=== PATIENT | female | born 1960 | race Caucasian/White ===

== ENCOUNTER → 2016-12-17 | Outpatient (CLI) | payer BC ==
--- NOTE | 2016-12-17 19:01 | DX ---
PA and Lateral Chest History: Cough in a 56-year-old female. Findings: The heart and mediastinal contours are normal. Pulmonary vascularity is normal. There is c entral peribronchial thickening. There is more focal opacity in the right infrahilar region which cou ld reflect atelectasis or possibly pneumonia. Clinical correlation is recommended. No pleural effusio ns are seen. Impression: Findings most consistent with airways disease are noted. More focal right infrahilar opa city is seen, atelectasis versus pneumonia with clinical correlation recommended.
== END ==
LOC: FIMAGING 17:20
PROVIDERS: ATTEND Nurse Practitioner Family
DX: J44.9 Chronic obstructive pulmonary disease, unspecified (principal)

== ENCOUNTER 2016-12-21 13:07 | Emergency (ER) | payer BC ==
[2016-12-21 13:09] VITALS: BP 121/77; RESP 16; TEMP 98.6
--- NOTE | 2016-12-21 13:33 | EDPHY ---
H & P Stated Complaint: sob - Personal History Current Tetanus/Diphtheria Vaccine: Yes - Medical/Surgical History Hx Asthma: No Hx Chronic Respiratory Disease: No Hx Diabetes: No Hx Cardiac Disease: No Hx Renal Disease: No Hx Cirrhosis: No Hx Alcoholism: No Hx HIV/AIDS: No Hx Splenectomy or Spleen Trauma: No Other PMH: pna - Social History Smoking Status: Never smoked Time Seen by Provider: 12/21/16 13:20 HPI/ROS: Chief complaint: Shortness of breath History of present illness: This is a 56-year-old female who presents to the emergency department reporting shortness of breath. Patient states she was diagnosed with pneumonia earlier this last week. She is currently on azithromycin, she is taking it as prescribed and took her 4th day dose today. She states she has been doing well. However today she started to cough in her car, she reports having a prolonged coughing episode and then feeling like phlegm got stuck in her chest and she felt like she was having trouble breathing. The symptoms have subsequently resolved and at this time she states she feels well with no complaints. No current trouble breathing, no fevers, no new signs or symptoms. (Kahlil Navas) - Physical Exam Exam: General Appearance: Alert and no distress. Eyes: Pupils equal and round no injection. ENT: Tympanic membranes, external auditory canals, external ears and surrounding soft tissue including over the mastoids are unremarkable. Nasopharynx is not injected. There is no rhinorrhea. Oropharynx is not injected. There is no edema. There is no exudate. There is no asymmetry. The uvula is midline. No elevation of the tongue. There is no hoarseness, no drooling, no trismus, no stridor. Respiratory: Chest is non tender, lungs are clear to auscultation. Cardiac: regular rate and rhythm Musculoskeletal: Neck is supple and non tender. Extremities have full range of motion and are non tender. Skin: No rashes or lesions. Neurologic: Alert and oriented x4. Strength and sensation intact and symmetrical. No meningismus. (Kahlil Navas) Constitutional: Initial Vital Signs Temperature (C) 37.0 C 12/21/16 13:08 Heart Rate 98 12/21/16 13:08 Respiratory Rate 16 12/21/16 13:08 Blood Pressure 121/77 H 12/21/16 13:08 O2 Sat (%) 97 12/21/16 13:08 O2 Delivery Mode Room Air Allergies/Adverse Reactions: prochlorperazine edisylate [From Compazine] Allergy (Unknown, Verified 07/05/13 16:33) prochlorperazine maleate [From Compazine] Allergy (Unknown, Verified 07/05/13 16 :33) Home Medications: Medication Instructions Recorded Restasis 07/05/13 Albuterol [Proventil Inhaler HFA 1 - 2 puffs IH Q4H #1 mdi 12/21/16 (*)] Guaifenesin/Codeine Phosphate 10 ml PO Q6 #120 liquid 12/21/16 [Codeine-Guaifen 10-100 mg/5 ml] Medical Decision Making ED Course/Re-evaluation: Patient seen under the supervision of my secondary supervising physician Dr. Brandee Fitch. Patient presents to the emergency department for evaluation and treatment after having an episode of coughing that resulted in some trouble breathing earlier today. She is currently being treated for pneumonia with azithromycin. She is compliant with medications. On evaluation she is nontoxic. She is afebrile and vital signs are stable. Symptoms have resolved. It was just one episode reported. I have offered a chest x-ray to re- evaluate her pneumonia but she has declined. Patient will be discharged home. She is asked to continue her antibiotics. Home care is discussed including the use of cough medication and an inhaler. She is asked to follow up with her primary care doctor for recheck. Return precautions are given. Patient voiced understanding and agreement with plan. (Kahlil Navas) Differential Diagnosis: Included but not limited to worsening pneumonia, reactive airway disease, empyema (Kahlil Navas) Other Provider: The patient wasevaluatedand managed by themidlevel provider. My co-signature indicates that [facility] reviewed this chart and I agree with the findings and plan of care asdocumented. I am the secondary supervisingphysician. (Brandee Fitch) Departure - Departure Disposition: Home, Routine, Self-Care Clinical Impression: Dyspnea Condition: Good Instructions: Dyspnea (ED) Additional Instructions: Follow-up with your primary care doctor this week for recheck Finished your antibiotics as prescribed If symptoms worsen or new symptoms develop return to the emergency department for recheck Referrals: OUT OF STATE,. [Primary Care Provider] - As per Instructions Larissa Angel MD [Medical Doctor] - As per Instructions Prescriptions: Guaifenesin/Codeine Phosphate [Codeine-Guaifen 10-100 mg/5 ml] 10 ml PO Q6 #120 liquid Albuterol [Proventil Inhaler HFA (*)] 1 - 2 puffs IH Q4H #1 mdi
[2016-12-21 13:56] VITALS: PULSE 84; O2SAT 95
== END 2016-12-21 13:55 | disposition home or self-care (01) ==
DX: R06.00 Dyspnea, unspecified (principal)

== ENCOUNTER → 2017-05-01 | Outpatient (CLI) | payer BC | LOC: FIMAGING 09:29 | PROVIDERS: ATTEND Family Medicine | DX: Z12.31 Encounter for screening mammogram for malignant neoplasm of breast (principal) | CPT/HCPCS: G0202 ==

== ENCOUNTER → 2017-06-03 | Outpatient (CLI) | payer BC | LOC: FIMAGING 08:08 | PROVIDERS: ATTEND Physician Assistant | DX: R10.9 Unspecified abdominal pain (principal); R14.0 Abdominal distension (gaseous) ==

== ENCOUNTER → 2017-07-15 | Outpatient (CLI) | payer OTHER | LOC: FIMAGING 12:47 | PROVIDERS: ATTEND Physical Medicine & Rehabilitation | DX: M25.521 Pain in right elbow (principal) ==

== ENCOUNTER → 2018-05-03 | Outpatient (CLI) | payer BC, OTHER | LOC: FIMAGING 11:24 | PROVIDERS: ATTEND Family Medicine | DX: Z12.31 Encounter for screening mammogram for malignant neoplasm of breast (principal); Z80.3 Family history of malignant neoplasm of breast ==

== ENCOUNTER 2018-10-06 09:49 | Emergency (ER) | payer BC ==
--- NOTE | 2018-10-06 10:34 | EDPHY ---
H & P Stated Complaint: 2x past week HR to 180 c near syncope. Denies CP/SOB. Time Seen by Provider: 10/06/18 10:16 HPI/ROS: CHIEF COMPLAINT: Presyncope, episodes of reported tachycardia HISTORY OF PRESENT ILLNESS: The patient presents to the ED with complaints of intermittent presyncope over the past week. The patient recently started using a Fitbit heart rate monitor and reportedly has had document pulse rates as high as 180. She appeared to have a tachycardia yesterday during her sensation of presyncope. The patient has had some very vague left-sided chest pain which is not pleuritic or reproducible. She denies any asymmetric calf pain or swelling. She denies any recent medication changes. She denies significant past medical history. REVIEW OF SYSTEMS: A comprehensive 10 point review of systems is otherwise negative aside from elements mentioned in the history of present illness. Source: Patient - Personal History Current Tetanus/Diphtheria Vaccine: Yes - Medical/Surgical History Hx Asthma: No Hx Chronic Respiratory Disease: No Hx Diabetes: No Hx Cardiac Disease: No Hx Renal Disease: No Hx Cirrhosis: No Hx Alcoholism: No Hx HIV/AIDS: No Hx Splenectomy or Spleen Trauma: No Other PMH: pna, appendectomy - Social History Smoking Status: Never smoked - Physical Exam Exam: General Appearance: Alert, no distress Eyes: Pupils equal and round no pallor or injection ENT, Mouth: Mucous membranes moist Respiratory: There are no retractions, lungs are clear to auscultation Cardiovascular: Regular rate and rhythm Gastrointestinal: Abdomen is soft and nontender, no masses, bowel sounds normal Neurological: A&O, normal motor function, normal sensory exam, normal cranial nerves Skin: Warm and dry, no rashes Musculoskeletal: Neck is supple nontender Extremities: symmetrical, full range of motion Psychiatric: Patient is oriented X 3, there is no agitation Constitutional: Initial Vital Signs Temperature (C) 36.5 C 10/06/18 09:53 Heart Rate 80 10/06/18 09:53 Respiratory Rate 18 10/06/18 09:53 Blood Pressure 126/76 H 10/06/18 09:53 O2 Sat (%) 99 10/06/18 09:53 O2 Delivery Mode Room Air Allergies/Adverse Reactions: prochlorperazine edisylate [From Compazine] Allergy (Unknown, Verified 10/06/18 09:52) prochlorperazine maleate [From Compazine] Allergy (Unknown, Verified 10/06/18 09 :52) Home Medications: Medication Instructions Recorded Restasis 07/05/13 Albuterol [Proventil Inhaler HFA 1 - 2 puffs IH Q4H #1 mdi 12/21/16 (*)] Codeine Phosphate/Guaifenesin 10 ml PO Q6 #120 liquid 12/21/16 [Codeine-Guaifen 10-100 mg/5 ml] Medical Decision Making - Diagnostics EKG Interpretation: EKG: Complete interpretation has been separately recorded in the [employer] archive. Summary impression: Sinus rhythm, rate 78, nonspecific ST T wave changes noted ED Course/Re-evaluation: The patient presents to the ED for evaluation of a reported tachycardia documented by a fitness monitor. The patient is asymptomatic in the emergency department. Her EKG demonstrated a normal sinus rhythm. She was placed on a property management assistant. While in the department her heart rate monitor did tell her she experienced tachycardia at a rate of 120 however this was not demonstrated on our monitoring here. At this point time she is asymptomatic. She has no acute complaints. We did discuss the risks and benefits of potential Holter monitoring testing which would be reasonable to do as an outpatient. The patient is comfortable being discharged home at this point time. She will return to the ED for any chest pain, shortness of breath, presyncope or measured tachycardia. Patient's troponin is noted to be normal. I doubt acute coronary syndrome. Additionally, the patient is low risk by Wells criteria and has a negative D- dimer which I feel adequately excludes pulmonary embolism. Patient is noted to have no evidence of a abnormal TSH Differential Diagnosis: Differential diagnosis considered includes SVT, atrial fibrillation, dehydration , metabolic abnormality, acute coronary syndrome, pulmonary embolism - Data Points Laboratory Results: Laboratory Results 10/06/18 10:30 10/06/18 10:30 10/06/18 10/06/18 10/06/18 10:36 10:30 10:30 WBC RBC Hgb Hct MCV MCH MCHC RDW Plt Count MPV Neut % (Auto) Lymph % (Auto) [place] % (Auto) Eos % (Auto) Baso % (Auto) Nucleat RBC Rel Count Absolute Neuts (auto) Absolute Lymphs (auto) Absolute Monos (auto) Absolute Eos (auto) Absolute Basos (auto) Absolute Nucleated RBC Immature Gran % Immature Gran # D-Dimer < 0.27 ug/mLFEU ug/mLFEU (0.00-0.50) Sodium 142 mEq/L mEq/L (135-145) Potassium 3.9 mEq/L mEq/L (3.3-5.0) Chloride 106 mEq/L mEq/L (97-110) Carbon Dioxide 26 mEq/l mEq/l (22-31) Anion Gap 10 mEq/L mEq/L (6-14) BUN 10 mg/dL mg/dL (7-23) Creatinine 0.7 mg/dL mg/dL (0.6-1.0) Estimated GFR > 60 Glucose 104 mg/dL H mg/dL (70-100) Calcium 9.9 mg/dL mg/dL (8.5-10.4) POC Troponin I 0.00 ng/mL ng/mL (0.00-0.08) TSH 2.460 uIU/mL uIU/mL (0.465-4.680) 10/06/18 10:30 WBC 4.66 10^3/uL 10^3/uL (3.80-9.50) RBC 4.54 10^6/uL 10^6/uL (4.18-5.33) Hgb 14.2 g/dL g/dL (12.6-16.3) Hct 40.7 % % (38.0-47.0) MCV 89.6 fL fL (81.5-99.8) MCH 31.3 pg pg (27.9-34.1) MCHC 34.9 g/dL g/dL (32.4-36.7) RDW 13.0 % % (11.5-15.2) Plt Count 257 10^3/uL 10^3/uL (150-400) MPV 10.2 fL fL (8.7-11.7) Neut % (Auto) 59.9 % % (39.3-74.2) Lymph % (Auto) 28.1 % % (15.0-45.0) [place] % (Auto) 8.6 % % (4.5-13.0) Eos % (Auto) 2.6 % % (0.6-7.6) Baso % (Auto) 0.6 % % (0.3-1.7) Nucleat RBC Rel Count 0.0 % % (0.0-0.2) Absolute Neuts (auto) 2.79 10^3/uL 10^3/uL (1.70-6.50) Absolute Lymphs (auto) 1.31 10^3/uL 10^3/uL (1.00-3.00) Absolute Monos (auto) 0.40 10^3/uL 10^3/uL (0.30-0.80) Absolute Eos (auto) 0.12 10^3/uL 10^3/uL (0.03-0.40) Absolute Basos (auto) 0.03 10^3/uL 10^3/uL (0.02-0.10) Absolute Nucleated RBC 0.00 10^3/uL 10^3/uL (0-0.01) Immature Gran % 0.2 % % (0.0-1.1) Immature Gran # 0.01 10^3/uL 10^3/uL (0.00-0.10) D-Dimer Sodium Potassium Chloride Carbon Dioxide Anion Gap BUN Creatinine Estimated GFR Glucose Calcium POC Troponin I TSH Point of Care Test Results: Chemistry 10/06/18 10:36 POC Troponin I 0.00 ng/mL ng/mL (0.00-0.08) Departure - Departure Disposition: Home, Routine, Self-Care Clinical Impression: Pre-syncope Condition: Good Instructions: Near Syncope (ED) Additional Instructions: 1. Please follow up with the railroad car repairman you have been referred to for consideration of a Holter monitor. 2. Return to the ED for any worsening chest pain, shortness of breath, passing out or other concerns. Please return to the ED should you have a heart rate greater than 100 so that we can repeat her EKG. 3. Follow up with your primary care provider as scheduled. Referrals: Ashlie Pickard MD [Primary Care Provider] - As per Instructions Hanh Kilpatrick MD [Medical Doctor] - As per Instructions
--- NOTE | 2018-10-06 10:35 | CPEKG ---
Test Reason : OPEN Blood Pressure : / mmHG Vent. Rate : 078 BPM Atrial Rate : 078 BPM P-R Int : 134 ms QRS Dur : 099 ms QT Int : 374 ms P-R-T Axes : 068 072 -12 degrees QTc Int : 426 ms Sinus rhythm Abnormal R-wave progression, early transition Confirmed by Devin Wheeler ([id number]) on 10/06/2018 10:34:28 AM Referred By: Confirmed By:Devin Wheeler
[2018-10-06 10:49] LABS: PLATELET COUNT 257 10^3/uL (150-400)
[2018-10-06 12:48] VITALS: BP 105/72
== END 2018-10-06 12:49 | disposition home or self-care (01) ==
DX: R55 Syncope and collapse (principal); R07.89 Other chest pain
CPT/HCPCS: 84484-PO

== ENCOUNTER → 2019-05-04 | Outpatient (CLI) | payer BC | LOC: FIMAGING 14:30 ==

== ENCOUNTER → 2019-05-18 | Outpatient (CLI) | payer BC | LOC: FIMAGING 15:10 ==